=== PATIENT | female | born 1970 | race Hispanic/Latino ===

== ENCOUNTER 2016-11-02 07:46 | Day surgery (SDC) | payer BC ==
[2016-10-30 09:47] VITALS: BMI 19.8
[2016-11-02 08:09] LABS: BASO % 0.8 % (0.0-2.0); EOS # 0.1 K/uL (0.0-0.7); EOS % 1.6 % (0.0-4.0); HEMATOCRIT 42.6 % (34.0-47.0); LYMPH # 1.4 K/uL (1.0-4.3); MEAN CELL VOLUME 91.6 fL (81.0-99.0); MEAN CORPUSCULAR HEMOGLOBIN 30.3 pg (27.0-31.0); MEAN CORPUSCULAR HGB CONC 33.1 g/dL (33.0-37.0); MEAN PLATELET VOLUME 7.5 fL (7.2-11.7); MONO # 0.2 K/uL (0.0-0.8); MONO % 4.9 % (0.0-10.0); RED CELL DISTRIBUTION WIDTH 13.3 % (11.5-14.5); WHITE BLOOD COUNT 4.9 K/uL (4.8-10.8)
[2016-11-02 08:26] LABS: CHLORIDE 99 mmol/L (98-107); SODIUM 141 mmol/L (132-148)
[2016-11-02 08:27] LABS: POTASSIUM 3.8 mmol/L (3.6-5.2)
[2016-11-02 08:29] LABS: CARBON DIOXIDE 29 mmol/L (22-30); GFR AFRICAN-AMERICAN > 60
[2016-11-02 08:30] LABS: BLOOD UREA NITROGEN 12 mg/dL (7-17); CALCIUM 9.1 mg/dl (8.6-10.4); GLUCOSE,RANDOM 96 mg/dL (65-105)
[2016-11-02 09:00] VITALS: O2SAT 100
[2016-11-02] MEDS ORDERED: Propofol 10 mg/ml 1,000 MG/100 ML VIAL ONE (09:34)
[2016-11-02] MEDS ORDERED: Propofol 10 mg/ml Inj (20 ML) ONE (10:01)
[2016-11-02] MEDS ORDERED: Lactated Ringer's 1,000 ML IV ONE (10:03)
[2016-11-02] MEDS ORDERED: Midazolam 2 MG/2 ML VIAL ONE (10:18)
[2016-11-02] MEDS ORDERED: HYDROmorphone 0.5 mg/0.5 ml ISec IVP PRN (10:47)
--- NOTE | 2016-11-02 10:53 | PCM.SURG1 ---
Surgeon's Initial Post Op Note - Surgeon's Notes Surgeon: Lauren Loredo MD Heel Seat Trimmer: none Type of Anesthesia: General LMA Pre-Operative Diagnosis: Abnormal uterine bleeding Operative Findings: anterveted uteurs, 10 week, no adnexal masses, bilaterl ostia visulaized Post-Operative Diagnosis: same as above Operation Performed: Operative hysteroscopy fractional dilation and currettage Specimen/Specimens Removed: endocervical currettngs, enodmetrial currettings Estimated Blood Loss: EBL {In ML}: 5 Blood Products Given: N/A Drains Used: No Drains Post-Op Condition: Good Date of Surgery/Procedure: 11/02/16 Time of Surgery/Procedure: 10:00
[2016-11-02 12:22] VITALS: BP 105/75; PULSE 68; RESP 18; TEMP 97
--- NOTE | 2016-11-02 20:27 | OP ---
PROCEDURE DATE: 11/02/2016 SURGEON: Lauren Loredo MD SPECIALIST FIELD ENGINEER: None. TYPE OF ANESTHESIA: General LMA. PREOPERATIVE DIAGNOSIS: Abnormal uterine bleeding. OPERATIVE FINDINGS: Anteverted uterus 10 weeks size, no adnexal masses, and bilateral ostia visualized. POSTOPERATIVE DIAGNOSIS: Abnormal uterine bleeding. OPERATION PERFORMED: Operative hysteroscopy and fractional dilation and curettage. SPECIMEN: Endocervical curettings and endometrial curettings. ESTIMATED BLOOD LOSS: 5 mL. BLOOD PRODUCTS: None. COMPLICATIONS: None. DESCRIPTION OF PROCEDURE: The patient was taken to the operating room where she was given general anesthesia. Once found to be adequate, she was placed on the operating table in the dorsal supine position with legs supported using stirrups. The patient was prepped and draped in the usual sterile fashion. A time-out confirmed correct patient and correct procedure. Bimanual exam was performed with the above-mentioned findings. A red rubber catheter was then inserted into the urethra to drain the bladder. A Chan retractor was placed in the anteroposterior fornix of the vagina. The cervix was adequately visualized. Single-toothed tenaculum was placed on the anterior lip of the cervix and endocervical curettings were obtained with a Kevorkian curette and sent to Pathology on [facility]. The uterus was then sounded to 8 cm. The cervix was sequentially dilated with a Laci dilator to allow for introduction of the hysteroscope under direct visualization using normal saline as a distention media. Bilateral ostia are visualized including thickened white proliferative type endometrium. No gross masses. The hysteroscope was then removed and a gentle curettage was done 360 degrees until gritty texture was noted. The hysteroscope was then removed. All instruments removed. There was good hemostasis. At the end of the procedure, all needle, sponge, and instrument counts were noted and correct x2. The patient tolerated the procedure well and was transferred to the recovery room in stable condition. Lauren Loredo MD
== END 2016-11-02 12:26 | disposition home or self-care (01) ==
LOC: C.SDS 07:46
PROVIDERS: ATTEND Obstetrics & Gynecology
DX: N71.9 Inflammatory disease of uterus, unspecified (principal); N93.0 Postcoital and contact bleeding; N93.9 Abnormal uterine and vaginal bleeding, unspecified
CPT/HCPCS: 36415; 58558; 80048; 84703; 85025; 88305; J1100; J1885; J2001; J2250; J2405; J2704; J2765; J3010; J7120